=== PATIENT | female | born 1985 | race African-American/Black ===

== ENCOUNTER 2019-12-31 10:36 | Emergency (ER) | payer MEDICAID ==
[~2019-12-31] VITALS: Ht 170.2 cm; Wt 124.0 kg
[2019-12-31 10:42] VITALS: BP 116/73
== END 2019-12-31 11:34 | disposition home or self-care (01) ==
LOC: ER 11:00
DX: B37.0 Candidal stomatitis (principal)
CPT/HCPCS: 99282; 99283

== ENCOUNTER 2020-01-13 08:51 | Emergency (ER) | payer MEDICAID ==
[~2020-01-13] VITALS: Ht 170.2 cm; Wt 110.0 kg
[2020-01-13 10:02] VITALS: BP 119/84
== END 2020-01-13 10:06 | disposition home or self-care (01) ==
LOC: ER 08:51
DX: B37.0 Candidal stomatitis (principal); F17.200 Nicotine dependence, unspecified, uncomplicated
CPT/HCPCS: 82962; 99283

== ENCOUNTER 2021-07-08 15:01 | Emergency (ER) | payer MEDICAID ==
[~2021-07-08] VITALS: Ht 170.2 cm; Wt 115.0 kg
[2021-07-08] MEDS ORDERED: ASPI-1153 PO (15:13)
[2021-07-08] MEDS ORDERED: DIPHENHYDRAMINE 25MG CAPSULE PO ONE (18:00)
[2021-07-08] MEDS ORDERED: METOCLOPRAMIDE HCL 10MG TABLET PO ONE (18:00)
[2021-07-08 20:57] VITALS: BP 125/77
== END 2021-07-08 20:59 | disposition home or self-care (01) ==
LOC: ER 15:01
DX: R51.9 Headache, unspecified (principal)
CPT/HCPCS: 99283; J8597; Q0163

== ENCOUNTER 2024-12-20 22:34 | Emergency (ER) | payer MEDICAID ==
[~2024-12-20] VITALS: Ht 170.2 cm; Wt 118.0 kg
[~2024-12-20 22:34] MED LIST: ASPI-1153 PO
[2024-12-20 23:00] VITALS: O2SAT 99
[2024-12-21 00:53] LABS: BASOPHILS % 0.2 % (0.0-2.0); EOSINOPHILS % 2.2 % (0.0-5.0); HEMATOCRIT. 28.6 % (36.0-48.0); HEMOGLOBIN. 9.3 g/dL (12.0-16.0); LYMPHOCYTES % 18.0 % (20.0-50.0); MEAN PLATELET VOLUME 8.1 fl (7.4-10.4); MONOCYTES % 7.5 % (2.0-8.0); NEUTROPHILS % 72.1 % (40.0-76.0); PLATELET 461 x1000/uL (130-400); RED BLOOD CELL COUNT 4.20 mill/uL (4.2-5.4); RED CELL DISTRIBUTION WIDTH 19.2 % (11.6-14.6)
[2024-12-21 01:07] LABS: ADD RBC MORPHOLOGY YES; HCG SCREEN POSITIVE
[2024-12-21 02:28] LABS: CREATININE 0.7 mg/dL (0.6-1.0); UREA NITROGEN BLOOD 8 mg/dL (9-23)
[2024-12-21 03:27] LABS: CLARITY URINE TURBID (CLEAR); COLOR URINE RED (YELLOW); GLUCOSE URINE NEGATIVE (NEGATIVE); KETONES URINE NEGATIVE (NEGATIVE); LEUKOCYTE ESTERASE URINE 1+ (NEGATIVE); NITRITE URINE NEGATIVE (NEGATIVE); OCCULT BLOOD URINE 3+ (NEGATIVE); PH URINE 5.5 (4.5-8.0); PROTEIN URINE 2+ (NEGATIVE); SPECIFIC GRAVITY URINE 1.023 (1.005-1.030); UROBILINOGEN URINE 0.2 E.U./dL (0.2-1.0)
[2024-12-21] MEDS: ACETAMINOPHEN 325MG TABLET PO ONE (04:30)
[2024-12-21 05:05] VITALS: BP 109/56; PULSE 76; RESP 16; TEMP 36.6; O2SAT 99
[2024-12-21 06:56] LABS: PLATELET ESTIMATE INCREASED
[2024-12-21 06:59] LABS: BACTERIA URINE TRACE; RBC URINE TNTC /hpf (0-2); SQUAMOUS EPITHELIAL CELL URINE 1+ /lpf (RARE/1+)
== END 2024-12-21 05:27 | disposition home or self-care (01) ==
LOC: ER 22:34
DX: O20.0 Threatened abortion (principal); O26.891 Other specified pregnancy related conditions, first trimester; Z3A.08 8 weeks gestation of pregnancy
CPT/HCPCS: 36415; 76801; 80048; 81003; 81025; 84702; 84703; 85025; 86850; 86900; 99284